=== PATIENT | female | born 1980 | race Caucasian/White ===

== ENCOUNTER 2017-03-27 19:11 | Emergency (ER) | payer BC, OTHER ==
[~2017-03-27] VITALS: Ht 157.5 cm; Wt 102.1 kg
[2017-03-27 21:19] LABS: HEMATOCRIT 36.4 % (36.0-46.0); MCH 23.5 PG (29.0-34.0); MCHC 29.9 G/DL (30.0-36.0); MCV 78.4 FL (83-99); MEAN PLAT.VOLUME 10.1 uM^3 (9.5-12.4); PLATELET COUNT 380 K/uL (156-360); RBC DIS.WIDTH-CV 16.8 % (11.8-14.6); RBC DIS.WIDTH-SD 47.1 % (39-53); RED BLOOD COUNT 4.64 M/uL (3.80-5.20); WHITE BLOOD COUNT 14.4 K/uL (4.1-10.2)
[2017-03-27 21:27] LABS: CHLORIDE 104 mEq/L (99-109); POTASSIUM 3.7 mEq/L (3.7-5.4); SODIUM 138 mEq/L (136-147)
[2017-03-27 21:29] LABS: GLUCOSE 121 mg/dL (70-99)
[2017-03-27 21:30] LABS: ANION GAP 10 MEQ/L (2-14)
[2017-03-27 21:33] LABS: GFR ESTIMATE (CALCULATED) > 59 mL/min/
[2017-03-27 21:34] LABS: UREA NITROGEN (BUN) 8 mg/dL (9-23)
[2017-03-27 22:36] VITALS: BP 120/87
== END 2017-03-27 22:36 | disposition home or self-care (01) ==
LOC: EME 19:11 → EDBD 19:11 → EME 22:36
PROVIDERS: Emergency Medicine
PROC: 0HQ3XZZ Repair Left Ear Skin, External Approach (ICD-10-PCS; principal; 2017-03-27)
DX: S01.312A Laceration without foreign body of left ear, initial encounter (principal); V01.00XA Pedestrian on foot injured in collision with pedal cycle in nontraffic accident, initial encounter; Y93.01 Activity, walking, marching and hiking; Y92.512 Supermarket, store or market as the place of occurrence of the external cause; R51 Headache; M54.2 Cervicalgia; M25.552 Pain in left hip; M79.605 Pain in left leg; K50.90 Crohn's disease, unspecified, without complications; Z93.2 Ileostomy status
CPT/HCPCS: 70450; 70486; 71010; 72125; 73502; 73552; 73590; 80048; 85027; 99281; 99284